=== PATIENT | male | born 1990 | race Caucasian/White ===

== ENCOUNTER 2023-01-31 17:35 | Emergency (ER) | payer BC, OTHER ==
[~2023-01-31] VITALS: Ht 167 cm; Wt 92.0 kg
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
--- NOTE | 2023-01-31 18:13 | Diagnostic Imaging Report ---
INDICATION: Left-sided shoulder pain. COMPARISON: None. FINDINGS: Multiple radiographic views of the left shoulder were obtained and show mild inferior subluxation of the acromion in respect to the distal clavicle. This measures less than one shaft width, but is suspicious for underlying AC injury. Osseous structures are intact. Glenohumeral joint space is maintained. Included portions of the left lung are clear. No unexpected radiopaque foreign bodies are seen. IMPRESSION: 1. Findings consistent with left AC injury. Dictated by: Dictated on workstation # [id number]
[2023-01-31 18:55] VITALS: BP 146/102
== END 2023-01-31 18:55 | disposition home or self-care (01) ==
LOC: EDUNIT# 17:35 → ER 17:37
DX: S43.102A Unspecified dislocation of left acromioclavicular joint, initial encounter (principal); E11.9 Type 2 diabetes mellitus without complications; Z79.84 Long term (current) use of oral hypoglycemic drugs; V18.4XXA Pedal cycle driver injured in noncollision transport accident in traffic accident, initial encounter; Y92.410 Unspecified street and highway as the place of occurrence of the external cause
CPT/HCPCS: 73030; 99283; L3650

== ENCOUNTER → 2023-02-09 | Outpatient (CLI) | payer BC | LOC: ORTHO 11:06 | PROVIDERS: ATTEND Orthopaedic Surgery | DX: S43.112A Subluxation of left acromioclavicular joint, initial encounter (principal); X58.XXXA Exposure to other specified factors, initial encounter | CPT/HCPCS: 99203 ==

== ENCOUNTER → 2023-02-23 | Outpatient (CLI) | payer BC | LOC: ORTHO 09:21 | PROVIDERS: ATTEND Orthopaedic Surgery | DX: S43.119A Subluxation of unspecified acromioclavicular joint, initial encounter (principal) | CPT/HCPCS: 99213 ==

== ENCOUNTER → 2023-03-16 | Outpatient (CLI) | payer BC | LOC: ORTHO 09:16 | PROVIDERS: ATTEND Orthopaedic Surgery | DX: S43.1 Subluxation and dislocation of acromioclavicular joint (principal); X58.XXXD Exposure to other specified factors, subsequent encounter | CPT/HCPCS: 99213 ==